=== PATIENT | female | born 1995 | race Caucasian/White ===

== ENCOUNTER 2023-03-14 16:44 | Emergency (ER) | payer OTHER ==
[~2023-03-14] VITALS: Ht 165.1 cm; Wt 74.8 kg
[2023-03-14 19:10] LABS: BASO % 0.3 % (0.0-1.0); EOS # 0.1 10^3/uL (0.0-0.5); EOS % 0.3 % (0.0-3.0); HEMATOCRIT 41.7 % (36.0-47.0); HEMOGLOBIN 13.7 g/dl (12.0-15.5); LYMPH # 2.4 10^3/uL (1.5-5.0); LYMPH % 15.7 % (24.0-44.0); MEAN CORPUSCULAR HEMOGLOBIN 27.2 pg (27.0-33.0); MEAN CORPUSCULAR HGB CONC 32.9 g/dl (32.0-36.5); MEAN CORPUSCULAR VOLUME 82.9 fl (80.0-96.0); MONO # 0.6 10^3/uL (0.0-0.8); NEUTROPHILS # 11.9 10^3/uL (1.5-8.5); NEUTROPHILS % 79.4 % (36.0-66.0); PLATELET COUNT, AUTOMATED 320 10^3/uL (150-450); RED BLOOD COUNT 5.03 10^6/uL (4.00-5.40)
[2023-03-14 19:34] LABS: BLOOD UREA NITROGEN 13 MG/DL (9-23); CALCIUM LEVEL 9.4 MG/DL (8.5-10.1); CARBON DIOXIDE LEVEL 26 MMOL/L (20-31); CHLORIDE LEVEL 107 MMOL/L (98-107); CREATININE FOR GFR 0.59 MG/DL (0.55-1.30); GLOMERULAR FILTRATION RATE > 60.0 (>60); GLUCOSE, FASTING 108 MG/DL (60-100); POTASSIUM SERUM 4.2 MMOL/L (3.5-5.1); SODIUM LEVEL 136 MMOL/L (136-145)
[2023-03-14 20:30] VITALS: BP 118/75; TEMP 97; O2SAT 99
[2023-03-14] MEDS ORDERED: ISOVUE-370 76% 100ML VIAL As Ordered ONE (20:58)
== END 2023-03-14 22:05 | disposition home or self-care (01) ==
LOC: M ED 16:44
DX: R10.2 Pelvic and perineal pain (principal); Z88.5 Allergy status to narcotic agent
CPT/HCPCS: 36415; 74177; 76856; 80048; 81001; 84702; 85025; 93976; 99284; Q9967

== ENCOUNTER 2023-03-25 23:19 | Emergency (ER) | payer OTHER ==
[~2023-03-25] VITALS: Ht 165.1 cm; Wt 74.4 kg
[2023-03-26] MEDS: KETOROLAC 30 MG/ML 1ML VIAL IV ONE (00:05)
[2023-03-26 00:14] LABS: BASO % 0.2 % (0.0-1.0); EOS # 0.1 10^3/uL (0.0-0.5); EOS % 0.4 % (0.0-3.0); HEMATOCRIT 38.7 % (36.0-47.0); HEMOGLOBIN 13.1 g/dl (12.0-15.5); LYMPH % 16.3 % (24.0-44.0); MEAN CORPUSCULAR HEMOGLOBIN 27.4 pg (27.0-33.0); MEAN CORPUSCULAR HGB CONC 33.9 g/dl (32.0-36.5); MONO # 0.9 10^3/uL (0.0-0.8); NEUTROPHILS # 14.1 10^3/uL (1.5-8.5); NEUTROPHILS % 77.7 % (36.0-66.0); PLATELET COUNT, AUTOMATED 344 10^3/uL (150-450); RED BLOOD COUNT 4.78 10^6/uL (4.00-5.40); WHITE BLOOD COUNT 18.2 10^3/uL (4.0-10.0)
[2023-03-26 00:39] LABS: LIPASE 32 U/L (12-53)
[2023-03-26 00:41] LABS: ALBUMIN 3.7 G/DL (3.2-5.2); ALKALINE PHOSPHATASE 74 U/L (46-116); ALT/SGPT 17 U/L (7.0-40); AST/SGOT 15 U/L (<34); BILIRUBIN,DIRECT < 0.1 MG/DL (<0.4); BILIRUBIN,TOTAL 0.3 MG/DL (0.3-1.2); BLOOD UREA NITROGEN 16 MG/DL (9-23); CALCIUM LEVEL 9.3 MG/DL (8.5-10.1); CARBON DIOXIDE LEVEL 22 MMOL/L (20-31); CHLORIDE LEVEL 104 MMOL/L (98-107); GLOMERULAR FILTRATION RATE > 60.0 (>60); GLUCOSE, FASTING 119 MG/DL (60-100); POTASSIUM SERUM 3.7 MMOL/L (3.5-5.1); SODIUM LEVEL 137 MMOL/L (136-145); TOTAL PROTEIN 7.4 G/DL (5.7-8.2)
[2023-03-26 00:52] LABS: HCG, SERUM QUALITATIVE NEGATIVE (NEGATIVE)
[2023-03-26] MEDS: ONDANSETRON 4MG 2ML VIAL IV ONE (01:11)
[2023-03-26] MEDS: NS 1,000 ML IV ONE (01:45)
[2023-03-26] MEDS: MORPHINE 4 MG/ML 1ML VIAL IV PRN (02:04)
[2023-03-26] MEDS: TAMSULOSIN 0.4 MG CAP PO ONE (02:04)
[2023-03-26] MEDS ORDERED: FLOM0.4C39 PO (03:19)
[2023-03-26] MEDS ORDERED: KETO10TAB PO (03:19)
[2023-03-26] MEDS ORDERED: CEPH500C PO (03:19)
[2023-03-26] MEDS ORDERED: ONDA4TAB6 PO (03:19)
[2023-03-26 03:26] VITALS: BP 130/78; TEMP 98.3; O2SAT 98
[2023-03-26] MEDS: OXYCODONE/APAP 5MG/325MG(HOME DOSE PACK) PO ONE (03:36)
== END 2023-03-26 03:45 | disposition home or self-care (01) ==
LOC: M ED 23:19
DX: N20.2 Calculus of kidney with calculus of ureter (principal); N85.4 Malposition of uterus; E28.2 Polycystic ovarian syndrome; Z88.5 Allergy status to narcotic agent
CPT/HCPCS: 74176; 80048; 80076; 81001; 83690; 84703; 85025; 93041; 96361; 96374; 96375; 99284; J1885; J2405

== ENCOUNTER 2024-05-08 10:04 | Observation (INO) | payer OTHER ==
[~2024-05-08] VITALS: Ht 165.1 cm; Wt 73.4 kg
[2024-05-08] MEDS: LR 1,000 ML IV SCH ×2 (08:55→20:34)
[~2024-05-08 10:04] MED LIST: BUPR-71 PO; CEPH500C PO; FLOM0.4C39 PO; KETO10TAB PO; LEXA1TAB PO; ONDA-282 PO
[2024-05-08] MEDS ORDERED: propofoL 200 MG/20 ML VIAL As Ordered ONE (11:35)
[2024-05-08] MEDS ORDERED: dexmedeTOMIDine (4MCG/ML)200MCG/50ML BTL (PRECEDEX) As Ordered ONE (11:35)
[2024-05-08] MEDS ORDERED: ONDANSETRON 4MG 2ML VIAL As Ordered ONE (11:35)
[2024-05-08] MEDS ORDERED: LACRILUBE (AKWA TEARS) OPHTH OINT 3.5GM As Ordered ONE (11:35)
[2024-05-08] MEDS ORDERED: ACETAMINOPHEN 1000MG/100ML IV BAG As Ordered ONE (11:35)
[2024-05-08] MEDS ORDERED: SUGAMMADEX SODIUM 500 MG/5 ML VIAL (BRIDION) As Ordered ONE (11:35)
[2024-05-08] MEDS ORDERED: ROCURONIUM BROMIDE 50MG/5ML VIAL As Ordered ONE (11:35)
[2024-05-08] MEDS ORDERED: LIDOCAINE 2% 100MG/5ML SDV (FOR ANES.) As Ordered ONE (11:35)
[2024-05-08] MEDS ORDERED: MIDAZOLAM INJ 2MG/2ML VIAL As Ordered ONE (11:36)
[2024-05-08] MEDS ORDERED: fentaNYL 250 MCG/5 ML INJECTION As Ordered ONE (11:36)
[2024-05-08] MEDS: SCOPOLAMINE 1MG TRANSDERMAL PATCH TOP ONE (13:30)
[2024-05-08] MEDS: ceFAZolin SOD 2 GM IV ONCE IV ONE (13:30)
[2024-05-08] MEDS: HEPARIN SOD (PORCINE) 5000UNITS/ML 1ML VIAL/SYRINGE SQ ONE (13:45)
[2024-05-08] MEDS ORDERED: PHENYLephrine 500MCG 5ML (100MCG/ML) SYRINGE As Ordered ONE (13:53)
[2024-05-08] MEDS ORDERED: ePHEDrine SULFATE 25 MG/5 ML(5MG/ML) SYRINGE As Ordered ONE (13:55)
[2024-05-08] MEDS ORDERED: GLYCOPYRROLATE INJ 0.2 MG/ML 2 ML VIAL As Ordered ONE (14:16)
[2024-05-08] MEDS: GENTAMICIN SULF 80MG/2ML VIAL As Ordered ONE (14:17)
[2024-05-08] MEDS: LIDOCAINE W/EPINEPHRINE 1% 20ML VIAL As Ordered ONE (14:17)
[2024-05-08] MEDS ORDERED: HYDROmorphone HCL 2MG/ML 1ML VIAL As Ordered ONE (15:20)
[2024-05-08] MEDS ORDERED: PERCOCET 5MG/325MG TAB PO PRN (16:40)
[2024-05-08] MEDS ORDERED: ONDANSETRON 4MG 2ML VIAL IV PRN (16:40)
[2024-05-08] MEDS: BUPivacaine LIPOSOME/PF 266MG 20ML VIAL (13.3MG/ML)(EXPAREL) As Ordered ONE (16:54)
[2024-05-08] MEDS ORDERED: fentaNYL 100 MCG/2 ML INJECTION IV PRN (17:15)
[2024-05-08] MEDS: ONDANSETRON 4MG 2ML VIAL IV PRN (18:22)
[2024-05-08 19:00] VITALS: BP 112/63; TEMP 97.2; O2SAT 96
[2024-05-08 19:30] VITALS: BP 120/51; TEMP 97; O2SAT 95
[2024-05-08] MEDS: METOCLOPRAMIDE INJ 10MG/2ML VIAL IV PRN (19:49)
[2024-05-08 20:00] VITALS: BP 117/53; TEMP 97.5; O2SAT 94
[2024-05-08 21:00] VITALS: BP 110/56; TEMP 98.1; O2SAT 94
[2024-05-08 22:00] VITALS: BP 108/58; TEMP 97.7; O2SAT 94
[2024-05-08] MEDS: traMADol 50 MG TAB PO PRN (22:18)
[2024-05-08] MEDS: buPROPion **SR TABLET** (ZYBAN) 150MG PO SCH (22:18)
[2024-05-08] MEDS: ceFAZolin SODIUM 2 GM in DEXTROSE 5% (D5W) ADV/MINI-BAG 50 ML IV SCH (22:19)
[2024-05-08 23:00] VITALS: BP 105/58; TEMP 97.7; O2SAT 96
[2024-05-09] VITALS: BP 106/62; TEMP 97.7; O2SAT 96
[2024-05-09 04:00] VITALS: BP 108/57; TEMP 98.2; O2SAT 96
[2024-05-09] MEDS ORDERED: MULT-40 PO (09:17)
[2024-05-09] MEDS ORDERED: HOME MED LIST COMPLETE! XX SCH (09:20)
[2024-05-09] MEDS: ESCITALOPRAM OXALATE 10 MG TAB (LEXAPRO) PO SCH (09:43)
[2024-05-09 10:04] VITALS: BP 126/74; TEMP 97.9
[2024-05-09 10:30] VITALS: BP 126/78; TEMP 97.9
[2024-05-09] MEDS ORDERED: TRAM50TA2 PO (11:48)
[2024-05-09] MEDS: ACETAMINOPHEN 325 MG TAB PO PRN (12:00)
== END 2024-05-09 12:04 | disposition home or self-care (01) ==
LOC: M SDC 10:04 → M MS5PR 10:05 → UNDOADMOB 16:39 → M MS5PR 18:55
PROVIDERS: ADMIT Plastic Surgery Surgery of the Hand; ATTEND Plastic Surgery Surgery of the Hand
DX: N62 Hypertrophy of breast (principal); M54.6 Pain in thoracic spine; Z88.5 Allergy status to narcotic agent; Z79.899 Other long term (current) drug therapy
CPT/HCPCS: 19318; 81025; 88305; 96374; 96375; 96376; J0131; J0665; J0666; J0690; J1100; J1171; J1580; J2250; J2371; J2405; J2765; J3010; S0106